=== PATIENT | female | born 1980 | race Caucasian/White ===

== ENCOUNTER 2016-09-15 19:20 | Emergency (ER) | payer OTHER ==
[2016-09-15 20:14] VITALS: TEMP 98.1; BMI 44.9
[2016-09-15] MEDS ORDERED: MORPHINE 4 MG/ML INJECTION IV ONE (20:21)
[2016-09-15] MEDS ORDERED: ONDANSETRON HCL 4 MG/2 ML VIAL IV ONE (20:21)
--- NOTE | 2016-09-15 20:24 | EDPRACDOC ---
- General Information Chief Complaint: Rib Pain Stated Complaint: RT RIB AREA PAIN Time Seen by Provider: 09/15/16 20:15 Information Source: Patient Mode Of Arrival: Car Home Medications: Home Medications Epinephrine [Epipen 2-Roldan] 0.3 mg IM UNK #1 pen.injctr 01/06/13 Bupropion HCl [Wellbutrin] 150 mg PO BID 03/09/16 ClonazePAM [Klonopin] 0.5 mg PO QAM 03/09/16 ClonazePAM [Klonopin] 1 mg PO QHS 03/09/16 Escitalopram Oxalate [Lexapro] 20 mg PO DAILY 03/09/16 Methylprednisolone [Medrol] 4 mg PO DAILY #1 tab.ds.pk 03/09/16 Omeprazole 40 mg PO DAILY 03/09/16 Ranitidine HCl [Zantac] 150 mg PO BID #20 tablet 03/09/16 Ondansetron HCl [Zofran] 4 mg PO Q8H PRN #15 tab 09/15/16 Tramadol HCl [Ultram] 50 mg PO Q6H PRN #15 tab 09/15/16 Allergies/Adverse Reactions: Allergies Allergy/AdvReac Type Severity Reaction Status Date / Time cefuroxime axetil Allergy Anaphylaxis Verified 03/09/16 02:16 [From Ceftin] * prednisone Allergy See Verified 03/09/16 03:08 Comments - History of Present Illness Onset: 1 week HPI: Pt RUQ pain radiating to back with nausea, diarrhea x 1 week. Denies fever, cough, congestion, sob, changes in bladder, rash. Pt states for about 5 week she has had cough/bronchitis and was treated. pt states those symptoms improved and today pain became constant and worse with food. Pain Location: Reports: RUQ Pain Context: Reports: Spontaneous Pain Severity: Moderate Pain Quality: Reports: Aching, Sharp Pain Radiation: Reports: Back Adult Abdominal History: Denies: Abdominal Surgery, Urolithiasis, Bowel Obstruction, Similar Pain (dx) Modifying Factors: improves with: Food Female Associated Signs & Symptoms: Reports: Nausea Oral Intake: Normal Urinary Output: Normal ED Past Medical History - History Reviewed Yes Nurses notes reviewed and agree except as marked - Patient Medical History Psychological History: Reports: Depression, Anxiety - Social Medical History Smoking Status: Heavy tobacco smoker (5 or more cigarettes/day or daily pipe/ cigar) ETOH: None Substance Abuse: None EDM Review of Systems - Review of Systems Constitutional: No Symptoms Reported. negative: Fever, Chills, Weakness, Fatigue, Loss of Appetite Ears: No Symptoms Reported. negative: Pain, Hearing Loss, Drainage, Ear Pulling Throat: No Symptoms Reported. negative: Pain, Swelling Nose: No Symptoms Reported. negative: Congestion, Bleeding, Discharge, Injection, Swelling, Deformity, Ecchymosis, Tender, Abrasion, Laceration Mouth: No Symptoms Reported. negative: Pain, Drooling Respiratory: No Symptoms Reported. negative: Cough, Brassy Cough, Barky Cough, Shortness of Breath, Wheezing, Hemoptysis Cardiovascular: No Symptoms Reported. negative: Chest Pain, Palpitations, Syncope, Edema, Orthopnea, PND, Skin Mottling, Cyanosis Gastrointestinal: Nausea, Pain Genitourinary: No Symptoms Reported. negative: Dysuria, Hematuria, Frequency, Discharge, Bleeding, Testicular Pain, Neurological: No Symptoms Reported. negative: Headache, Dizziness, Seizure, Numbness, Weakness, Speech Difficulty, Gait Difficulty Musculoskeletal: Back Integumentary: No Symptoms Reported. negative: Itching, Rash, Bruising, Wound Allergic/Immunologic: No Symptoms Reported. negative: Hives, Itching Hematologic: No Symptoms Reported. negative: Lymphadenopathy, Easy Bruising, Easy Bleeding Psychiatric: No Symptoms Reported. negative: Anxiety, Depression, Hallucinations, Insomnia, Suicidal - Physical Exam Constitutional: Alert, Distress (moderate) Oriented to: Time, Person, Place Last recorded Vital Signs: Last Vital Signs Temp 98.1 F 09/15/16 20:10 Pulse 104 09/15/16 20:10 Resp 18 09/15/16 20:10 BP 138/81 09/15/16 20:10 Pulse Ox 97 09/15/16 20:10 Oxygen Pulse Oxygen Saturation 97 O2 Device Room Air Oxygen Flow Rate Fraction of Inspired Oxygen ( FIO2) - HEENT Head: Normal ( normocephalic) Eye Exam: Normal (PERRL, EOMI, Sclera white) Oropharynx: Normal (Pharynx:Moist without exudate,Gums-no swelling) Tympanic Membrane: Normal ENT EAC: Normal Nose: No Symptoms Reported (septum midline) Neck: Normal (FROM, trachea at midline) - Respiratory/Cardiovascular Respiratory: Normal - CTA (BBS clear to auscultation without adventitious sounds ) Cardiovascular: Tachycardia - GI Auscultation: Normal (NABS) Palpation: Normal (Soft,No rebound or guarding, non distended) Tenderness: Moderate, RUQ Dillon's Sign: Positive - Musculoskeletal Back: Normal (Non-Tender) Extremities: Normal (Normal tone, Pulses 2+ No cyanosis or edema, FROM) - Integumentary Skin: Normal, Warm, Dry Lymphatics: Normal (no adenopathy) - Neurologic Memory Impaired: Normal Motor Function: Normal (Normal tone, Pulses 2+ No cyanosis or edema, FROM) Mood Description: Normal Perception: Normal - Differential Diagnosis Cholecystitis, Cholelithiasis, Colic, Gastroenteritis, Pancreatitis, PUD - Results 09/15/16 20:48 09/15/16 20:48 WBC 13.0 xk/uL (3.8-10.8) H 09/15/16 20:48 RBC 4.29 xM/uL (4.20-5.40) 09/15/16 20:48 Hgb 13.0 g/dL (12.0-16.0) 09/15/16 20:48 Hct 38.3 % (36-47) 09/15/16 20:48 MCV 89 fL (81-99) 09/15/16 20:48 MCH 30.3 pg (27-32) 09/15/16 20:48 MCHC 33.9 g/dl (33-36) 09/15/16 20:48 RDW 13.2 % (11.5-14.5) 09/15/16 20:48 Plt Count 246 xk/uL (130-400) 09/15/16 20:48 MPV 7.4 fL (7.4-10.4) 09/15/16 20:48 Neut % (Auto) 57.1 % (45-76) 09/15/16 20:48 Lymph % (Auto) 32.7 % (17-44) 09/15/16 20:48 [place] % (Auto) 6.3 % (3-10) 09/15/16 20:48 Eos % (Auto) 3.3 % (0-5) 09/15/16 20:48 Baso % (Auto) 0.6 % (0-2) 09/15/16 20:48 Absolute Neuts (auto) 7.41 xk/uL (1.7-8.2) 09/15/16 20:48 Absolute Lymphs (auto) 4.16 xk/uL (0.65-4.75) 09/15/16 20:48 Sodium 139 mEq/L (137-146) 09/15/16 20:48 Potassium 3.9 mEq/L (3.5-5.1) 09/15/16 20:48 Chloride 107 mEq/L (98-107) 09/15/16 20:48 Carbon Dioxide 26 mMOL/L (22-33) 09/15/16 20:48 Anion Gap 10 mEq/L (8-16) 09/15/16 20:48 BUN 12 MG/DL (7-17) 09/15/16 20:48 Creatinine 0.80 MG/DL (0.52-1.04) 09/15/16 20:48 Estimated GFR (MDRD) > 60 mL/min (>=60) 09/15/16 20:48 Glucose 86 MG/DL (70-99) 09/15/16 20:48 Calculated Osmolality 267 MOs/Kg (270-290) L 09/15/16 20:48 Calcium 8.4 MG/DL (8.4-10.2) 09/15/16 20:48 Corrected Calcium 8.7 MG/DL (8.4-10.2) 09/15/16 20:48 Total Bilirubin 0.7 MG/DL (0.2-1.3) 09/15/16 20:48 AST 23 IU/L (14-36) 09/15/16 20:48 ALT 34 IU/L (9-52) 09/15/16 20:48 Alkaline Phosphatase 92 IU/L (38-126) 09/15/16 20:48 Total Protein 6.6 G/DL (6.3-8.2) 09/15/16 20:48 Albumin 3.7 G/DL (3.5-5.0) 09/15/16 20:48 Lipase 81 U/L (23-300) 09/15/16 20:48 Lab Results 09/15/16 09/15/16 20:48 20:48 WBC 13.0 H RBC 4.29 Hgb 13.0 Hct 38.3 MCV 89 MCH 30.3 MCHC 33.9 RDW 13.2 Plt Count 246 MPV 7.4 Neut % (Auto) 57.1 Lymph % (Auto) 32.7 [place] % (Auto) 6.3 Eos % (Auto) 3.3 Baso % (Auto) 0.6 Absolute Neuts (auto) 7.41 Absolute Lymphs (auto) 4.16 Sodium 139 Potassium 3.9 Chloride 107 Carbon Dioxide 26 Anion Gap 10 BUN 12 Creatinine 0.80 Estimated GFR (MDRD) > 60 Glucose 86 Calculated Osmolality 267 L Calcium 8.4 Corrected Calcium 8.7 Total Bilirubin 0.7 AST 23 ALT 34 Alkaline Phosphatase 92 Total Protein 6.6 Albumin 3.7 Lipase 81 - Diagnostic Imaging Abdomen Image interpreted by: Radiologist 09/15/16 21:18 IMPRESSION: 1. No acute findings. Specifically, no evidence of gallstones or cholecystitis. 2. Probable mild hepatic steatosis. - Additional Information Pt states she had issues with hydrocodone in past and would like to avoid that medication. Discussed with dominique Joyce to d/c home Decision Time to Discharge: 21:22 - Departure Disposition: Home Condition: Good Final Diagnosis: RUQ abdominal pain Instructions: Non-pharmacological Pain Management Therapies for Adults (GEN), Abdominal Pain (ED) Education/Counseling Given To: Patient Education/Counseling Given Regarding: Diagnosis, Treatment, Follow Up Referrals: Halina Desir MD [Primary Care Provider] - One Week Juan Khan MD [Staff Physician] - One Week Prescriptions: Ondansetron HCl [Zofran] 4 mg PO Q8H PRN #15 tab PRN Reason: Nausea/Vomiting Tramadol HCl [Ultram] 50 mg PO Q6H PRN #15 tab PRN Reason: Pain Additional Instructions: Follow up with PCP for further evaluation of gallbladder with HIDA scan.
[2016-09-15 20:56] LABS: AUTOMATED BASOPHIL 0.6 % (0-2); AUTOMATED EOSINOPHIL 3.3 % (0-5); AUTOMATED LYMPH 32.7 % (17-44); AUTOMATED MONOCYTE 6.3 % (3-10); AUTOMATED NEUTROPHIL 57.1 % (45-76); MPV 7.4 fL (7.4-10.4)
[2016-09-15 21:08] LABS: BLOOD UREA NITROGEN 12 MG/DL (7-17); CALC CORRECTED 8.7 MG/DL (8.4-10.2); CALCIUM 8.4 MG/DL (8.4-10.2); CALCULATED OSMOLALITY 267 MOs/Kg (270-290); CHLORIDE 107 mEq/L (98-107); GLUCOSE 86 MG/DL (70-99); SODIUM LEVEL 139 mEq/L (137-146); TOTAL PROTEIN 6.6 G/DL (6.3-8.2)
--- NOTE | 2016-09-15 21:17 | DIRPT ---
CLINICAL DATA: 36-year-old female with history of right upper quadrant abdominal pain for the past 2 weeks. EXAM: US ABDOMEN LIMITED - RIGHT UPPER QUADRANT COMPARISON: No priors. FINDINGS: Gallbladder: No gallstones or wall thickening visualized. No sonographic Dillon sign noted by production support developer. Common bile duct: Diameter: 4 mm Liver: No focal lesion identified. Mild diffuse increased echogenicity throughout the hepatic parenchyma, suggesting underlying hepatic steatosis. No definite cystic or solid hepatic lesions. No intrahepatic biliary ductal dilatation. Normal hepatopetal flow in the portal vein. IMPRESSION: 1. No acute findings. Specifically, no evidence of gallstones or cholecystitis. 2. Probable mild hepatic steatosis. Electronically Signed By: Jg Perez M.D. On: 09/15/2016 21:14
[2016-09-15 21:32] VITALS: BP 98/53; PULSE 97
== END 2016-09-15 21:37 | disposition home or self-care (01) ==
LOC: EDMC 19:20
DX: R10.11 Right upper quadrant pain (principal); F17.200 Nicotine dependence, unspecified, uncomplicated
CPT/HCPCS: 36415; 76705; 80053; 83690; 85025; 96374; 96375; 99283; J2270; J2405